=== PATIENT | female | born 1975 | race Caucasian/White ===

== ENCOUNTER 2023-12-15 07:33 | Emergency (ER) | payer OTHER ==
[2023-12-15] MEDS ORDERED: IBUPROFEN 400 MG TAB PO ONE (07:45)
[2023-12-15] MEDS ORDERED: HUMALOG100 UNITS/ IV (07:46)
[2023-12-15] MEDS ORDERED: HYDROmorphone HCL 2 MG/ML VIAL IM ONE (08:00)
[2023-12-15] MEDS ORDERED: HYDROCODON-ACE1 EA10 PO (08:34)
[2023-12-15 09:34] VITALS: BP 136/75
== END 2023-12-15 09:34 | disposition home or self-care (01) ==
LOC: ED 07:33
DX: S83.92XA Sprain of unspecified site of left knee, initial encounter (principal); S82.145A Nondisplaced bicondylar fracture of left tibia, initial encounter for closed fracture; E11.9 Type 2 diabetes mellitus without complications; Z79.4 Long term (current) use of insulin; W17.89XA Other fall from one level to another, initial encounter
CPT/HCPCS: 73560; 73700; 96372; 99284-25; A9270